=== PATIENT | male | born 1975 | race Caucasian/White ===

== ENCOUNTER 2023-08-24 14:50 | Outpatient (CLI) | payer OTHER, SELFPAY ==
--- NOTE | 2023-08-24 15:00 | CRLHL7_ITS ---
For Patients: As a result of the Century Cures Act, medical imaging exams and procedure reports are released immediately into your electronic medical record. You may view this report before your referring provider. If you have questions, please contact your health care provider. INDICATION: Open reduction internal fixation of fracture. Assess for healing. COMPARISON: Plain film [address] 16 April 2023. TECHNIQUE: Multidetector imaging. Axial coronal and sagittal formats. FINDINGS: Prominent patchy increased from comparison sclerosis in the volar lunate fracture fragment. Some irregular nondisplaced fragmentation at the volar radial margin. Relatively broad undulating chronic fracture lucency in the mid lunate. Two bridging recessed Block screws. Shallow collar of lucency around both screws, most pronounced around the heads in the dorsal fragment. Some relative increased sclerosis in the primary dorsal lunate fracture fragment compared to the other ossicles in the [id number] although less so than in the volar fragment. Chronic nonunited nondisplaced fracture through the dorsal radial margin of the dorsal fragment. Several chronic juxta-articular ossicles dorsal from the lunate and of articulation with the trapezium. Widened scapholunate interval of 4 mm. Complete joint space loss of lunate with capitate and proximal hamate relative osteopenia involving other bones outside of the lunate. IMPRESSION: 1. 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 Both dorsal and volar fragments are developing fragmentation comminution. 2. Interval placement of Block recess screws. Lucency around the screws, particularly in the dorsal fragment. 3. Slight increased widening of the scapholunate interval from disrupted scapholunate ligament. Please note that all CT scans at this facility use dose modulation, iterative reconstruction, and/or weight-based dosing when appropriate to reduce radiation dose to as low as reasonably achievable. Dictated by Glenroy Grajeda MD @ 08/26/2023 9:27:42 AM (Electronically Signed)
== END 2023-08-24 14:51 | disposition home or self-care (01) ==
LOC: CT 14:57
PROVIDERS: PCP Nurse Practitioner Family; Visit Provider Orthopaedic Surgery
DX: S62.124 Nondisplaced fracture of lunate [semilunar], right wrist (principal); Z47.89 Encounter for other orthopedic aftercare
CPT/HCPCS: 73200